=== PATIENT | female | born 1980 | race Caucasian/White ===

== ENCOUNTER 2016-07-27 16:03 | Emergency (ER) | payer OTHER ==
--- NOTE | 2016-07-27 18:10 | ED CLINICAL REPORT ---
Clinical Report - Physicians/Mid Levels [facility] [address] [place] [address] 07/27/2016 16:05 Patient: DWAYNE BELL Time Seen: 17:10; initial patient contact. Arrived- By private vehicle. Historian- patient. HISTORY OF PRESENT ILLNESS Chief Complaint: VAGINAL PAIN and DISCHARGE and DYSURIA. This started 5 days; pt is on flagyl for BV, diagnosed at walk in, is a diabetic and has not been checking her sugars. she states she only eats when she can and only has bread available to her currently. and still present and worsening. The symptoms are described as severe. The patient has had severe vaginal pain, a vaginal discharge and vaginal itching. She has had pain with urination. Sexually active- (2 weeks ago). Similar symptoms previously: None. Recent medical care: The patient was seen recently at another facility in a clinic. REVIEW OF SYSTEMS No nausea. All systems otherwise negative, except as recorded above. PAST HISTORY See nurses notes. Problems: Depression. Acute Pain. Tendonitis. Neuropathy. Muscle Spasm. Skin Rash. Cellulitis. Hypertension. LNMP - Last Normal Menstrual Period. Diabetes Mellitus. Medications: Naproxen Oral (Tablet 500 mg), 2x a day. PROzac Oral (Capsule 40 mg), daily. MetFORMIN HCl Oral (Tablet 500 mg) 1 tablet, 2x a day. Imitrex Oral (Tablet 25 mg), as needed. Gabapentin Oral (Tablet 800 mg) 1 tablet, 3x a day. Allergies: Contrast Media Ready-Box. Pork-derived Products. SOCIAL HISTORY No alcohol use or drug use. FAMILY HISTORY Negative. ADDITIONAL NOTES The nursing notes have been reviewed with agreement regarding the chief complaint, HPI, ROS, PMH and patient medications and allergies. PHYSICAL EXAM Vital Signs: 07/27/2016 16:55 BP: 133/90. HR: 104. RR: 22. O2 saturation: 100%. Temp: 98.0 F. Have been reviewed. Appearance: Alert. Oriented X3. No acute distress. CVS: Heart sounds normal. Respiratory: No respiratory distress. Breath sounds normal. Abdomen: Soft and nontender. Bowel sounds normal. No organomegaly. No mass. : Right labia minora : severe erythema and moderate tenderness and swelling. Perineum: mild erythema and tenderness. Left labia minora : moderate erythema, tenderness and swelling. External inspection normal. Thick, curd-like and white vaginal discharge present (moderately severe labial swelling and redness consistent with severe candidal infection). LABS, X-RAYS, AND EKG Laboratory Tests: UA-Culture if indicated: (JANAK: 07/27/2016 16:49) ( MsgRcvd 07/27/2016 17:20) Final results Test Result Flag Units (Reference) URINE COLOR YELLOW URINE APPEARANCE SL CLOUDY URINE GLUCOSE 3+ (NEGATIVE) URINE BILIRUBIN NEGATIVE (NEGATIVE) URINE KETONE 1+ (NEGATIVE) URINE SPECIFIC GRAVITY 1.015 (1.010-1.030) URINE PH 6.0 (5.0-8.0) URINE PROTEIN NEGATIVE (NEGATIVE) URINE UROBILINOGEN 0.2 EU/dL (0.2-1.0) URINE NITRITE NEGATIVE (NEGATIVE) URINE BLOOD TRACE-INTACT (NEGATIVE) URINE LEUK ESTERASE NEGATIVE (NEGATIVE) URINE RBC 1-3 rbc/hpf (0-1) URINE WBC 3-5 wbc/hpf (0-1) URINE EPITHELIAL CELLS 3-5 EPI/hpf (0-5) URINE BACTERIA MODERATE (2+ TO 3+) (NONE SEEN) URINE COMMENT CULTURE INDICATED MUCUS 2+URINE CULTURES ARE SET-UP BASED ON THE FOLLOWING CRITERIA:POSITIVE NITRITEPOSITIVE LEUKOCYTE ESTERASEGREATER THAN 10 WHITE BLOOD CELLSMODERATE (2+) OR GREATER BACTERIA . PROGRESS AND PROCEDURES Course of Care: Patient is stable. CLINICAL IMPRESSION Chronic severe nata vulvovaginitis Acute urinary tract infection with cystitis. Type 2 diabetes with hyperglycemia. No coma. INSTRUCTIONS Rest. Drink plenty of fluids. Avoid alcohol. Avoid lactose-containing (such as milk, cheese and ice cream) foods. Other diet: low carb dieting is recommended to help control your blood sugar until you see your doctor. No sexual contact. (see your doctor this week, start monitoring your blood glucose, and eat very low carb until you can get in with your doctor.). Warnings: Further evaluation is necessary. It is very important to follow up with a physician. GENERAL WARNINGS: Return or contact your physician immediately if your condition worsens or changes unexpectedly, if not improving as expected, or if other problems arise. Your Current Medications: CONTINUE TAKING THE FOLLOWING MEDICATIONS: Gabapentin Oral : Tablet 800 mg, 1 tablet 3x a day. Imitrex Oral : Tablet 25 mg, prn. MetFORMIN HCl Oral : Tablet 500 mg, 1 tablet 2x a day. Naproxen Oral : Tablet 500 mg, 2x a day. PROzac Oral : Capsule 40 mg, daily. Prescription Medications: Cipro 500 mg: take 1 tab orally every 12 hours for 3 days. No refills. Substitution is permissible. Oxycodone/APAP 5 mg/325 mg: take 1 tablet orally every 6 hours as needed for pain. Dispense twelve (12). No refill. Diflucan 150 mg tablets. No refill. (take 1 tab every 3 days for 21 days or 7 doses. disp#7) OTC Medications: Gyne-Lotrimin 2% Vaginal Cream (available over the counter): insert 1 applicatorful into the vagina every 12 hours for 7 days. One refill. Substitution is permissible. Understanding of the discharge instructions verbalized by patient and parent. (Electronically signed by Josselin Herrera PA-C 07/28/2016 0:17)
--- NOTE | 2016-07-27 18:10 | ED ORDER SUMMARY ---
..... Patient: DWAYNE BELL OrderSheet [facility] VisitID: [id number] [address] [place] [address] 35y, F Registration Date/Time: 07/27/2016 ORDER SHEET Weight: 68.0 kg (stated) Allergies: Contrast Media Ready-Box, Pork-derived Products GENERAL ORDERS: UA-Culture if indicated Urgent (16:48 07/27/2016 Fermin VALE) (17:02 Delma R.N.) MEDICATION ORDERS: Oxycodone-APAP PO 5/325 mg (HIGH ALERT MEDICATION, NOW) (18:05 07/27/2016 Fermin VALE) (18:09 Delma R.N.) IV FLUIDS: ORDER SHEET NOTES: [Electronically signed by Josselin Herrera PA-C (00:17 07/28/2016)] [Electronically signed by Richard Steele R.N. (13:15 07/28/2016)] [Electronically locked/signed by Richard Steele R.N. (13:15 07/28/2016)]
--- NOTE | 2016-07-27 18:10 | ED NURSING NOTES ---
Clinical Report - Nurses [facility] [address] [place] [address] 07/27/2016 16:05 Patient: DWAYNE BELL TRIAGE Triage time 16:48. Acuity: LEVEL 3. Chief Complaint: PELVIC PAIN and VAGINAL DISCHARGE and PAINFUL URINATION. Alert. SEPSIS SCREEN: Sepsis Screen. Infection suspected/documented. Temperature not greater than 38.3 degrees C (101 degrees F). --17:01 Richard Steele R.N. 16:55 07/27/16. BP: 133/90. HR: 104. RR: 22. O2 saturation: 100%. Temp: 98.0 F. Pain level now 10/10. --17:01 Richard Steele R.N. Weight: 68 kg stated. Height/Length: 62 inches Per Patient. BMI: 27.4. --16:56 Richard Steele R.N. Medications Gabapentin Oral (Tablet 800 mg) 1 tablet, 3x a day. --16:58 Richard Steele R.N. Imitrex Oral (Tablet 25 mg), as needed. --16:58 Richard Steele R.N. MetFORMIN HCl Oral (Tablet 500 mg) 1 tablet, 2x a day. --16:58 Richard Steele R.N. PROzac Oral (Capsule 40 mg), daily. --16:58 Richard Steele R.N. Naproxen Oral (Tablet 500 mg), 2x a day. --16:58 Richard Steele R.N. Allergies Contrast Media Ready-Box. --16:59 Richard Steele R.N. Pork-derived Products. --16:59 Richard Steele R.N. Medication/allergy information source: the patient. --17:01 Richard Steele R.N. History ( dx with bacterial vaginitis at [facility] 3 days ago, placed on antibx. Returned to [facility] today for continued sx. States pain is 10/10, sx have been present x 1 week. Tearful in triage. States she is on an antibx that starts with an "m"). Onset. (1 weeks ago). 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 PAST MEDICAL HX: Last normal menstrual period was 3 weeks ago. Denies current . SOCIAL HX: Never smoker. No alcohol use or drug use. ABUSE ASSESSMENT: Abuse assessment: The patient was asked "Do you feel safe in your home?". No report of abuse. FALL RISK ASSESSMENT: Fall risk assessment completed. No fall risk identified. NUTRITIONAL RISK ASSESSMENT: The nutritional risk assessment revealed no deficiencies. FUNCTIONAL ASSESSMENT: Functional assessment: no impairments noted. LEARNING NEEDS ASSESSMENT: The learning needs assessment revealed no barriers. SKIN INTEGRITY ASSESSMENT: Skin integrity risk assessment completed. No skin integrity risk identified. --17:01 Richard Steele R.N. PROBLEMS: Depression. Acute Pain. Tendonitis. Neuropathy. Muscle Spasm. Skin Rash. Cellulitis. Hypertension. Diabetes Mellitus. --17:00 Richard Steele R.N. ADDITIONAL SURGERIES: Appendectomy. Left wrist. Thumb. --17:00 Richard Steele R.N. Interventions ID band on patient. To waiting room. --17:01 Richard Steele R.N. PHYSICAL ASSESSMENT To room via wheelchair. GENERAL / NEURO / PSYCH: Alert. Oriented X 4. Appears anxious. RESPIRATORY: Respirations not labored. CVS: Capillary refill less than 2 seconds. GI / : Abdomen soft and nontender. SKIN: Skin is warm and dry. --17:01 Richard Steele R.N. NURSING PROGRESS NOTES The plan of care for this patient has been created. Call light placed in reach. Patient placed in chair. --17:01 Richard Steele R.N. 17:02 07/27/16. Patient ID band checked for patient name and birthdate: patient confirmed. Instructions provided to collect clean catch urine and patient verbalized understanding. Clean catch urine collected with return of yellow-colored urine, sediment noted; odor is foul-smelling; sample sent to lab for urinalysis and culture. Specimen labeled in the presence of the patient. --17:02 Richard Steele R.N. ( inquired as to patient's recent blood sugars. Pt states she doesn't check her sugars because it hurts her fingers to do so. CBG 287). --17:46 Richard Steele R.N. 18:09 07/27/2016 Oxycodone-APAP (Oxycodone-Acetaminophen) PO 5/325 mg Tablets 1 tab given. Allergies verified, confirmed 5 rights and sedative warning given to the patient. --18:09 Richard Steele R.N. DISPOSITION / DISCHARGE 18:17 07/27/16. Departure time: 1814. Condition at departure: improved and stable. Reviewed medication(s) side effects, precautions, dosing and course information. Prescription(s) given to the patient. Patient verbalized understanding. Written instructions provided in [place]. The patient was discharged by the physician medical office assistant instructor. She was discharged home and accompanied by parent. She left the Emergency Department ambulatory and via private vehicle. Parent driving. --18:17 Richard Steele R.N. Locked/Released at 07/28/2016 13:15 by Richard Steele R.N.
--- NOTE | 2016-07-27 18:10 | ED NURSING NOTES ---
Clinical Report - Nurses [facility] [address] [place] [address] 07/27/2016 16:05 Patient: DWAYNE BELL TRIAGE Triage time 16:48. Acuity: LEVEL 3. Chief Complaint: PELVIC PAIN and VAGINAL DISCHARGE and PAINFUL URINATION. Alert. SEPSIS SCREEN: Sepsis Screen. Infection suspected/documented. Temperature not greater than 38.3 degrees C (101 degrees F). --17:01 Richard Steele R.N. 16:55 07/27/16. BP: 133/90. HR: 104. RR: 22. O2 saturation: 100%. Temp: 98.0 F. Pain level now 10/10. --17:01 Richard Steele R.N. Weight: 68 kg stated. Height/Length: 62 inches Per Patient. BMI: 27.4. --16:56 Richard Steele R.N. Medications Gabapentin Oral (Tablet 800 mg) 1 tablet, 3x a day. --16:58 Richard Steele R.N. Imitrex Oral (Tablet 25 mg), as needed. --16:58 Richard Steele R.N. MetFORMIN HCl Oral (Tablet 500 mg) 1 tablet, 2x a day. --16:58 Richard Steele R.N. PROzac Oral (Capsule 40 mg), daily. --16:58 Richard Steele R.N. Naproxen Oral (Tablet 500 mg), 2x a day. --16:58 Richard Steele R.N. Allergies Contrast Media Ready-Box. --16:59 Richard Steele R.N. Pork-derived Products. --16:59 Richard Steele R.N. Medication/allergy information source: the patient. --17:01 Richard Steele R.N. History ( dx with bacterial vaginitis at [facility] 3 days ago, placed on antibx. Returned to [facility] today for continued sx. States pain is 10/10, sx have been present x 1 week. Tearful in triage. States she is on an antibx that starts with an "m"). Onset. (1 weeks ago). 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 PAST MEDICAL HX: Last normal menstrual period was 3 weeks ago. Denies current . SOCIAL HX: Never smoker. No alcohol use or drug use. ABUSE ASSESSMENT: Abuse assessment: The patient was asked "Do you feel safe in your home?". No report of abuse. FALL RISK ASSESSMENT: Fall risk assessment completed. No fall risk identified. NUTRITIONAL RISK ASSESSMENT: The nutritional risk assessment revealed no deficiencies. FUNCTIONAL ASSESSMENT: Functional assessment: no impairments noted. LEARNING NEEDS ASSESSMENT: The learning needs assessment revealed no barriers. SKIN INTEGRITY ASSESSMENT: Skin integrity risk assessment completed. No skin integrity risk identified. --17:01 Richard Steele R.N. PROBLEMS: Depression. Acute Pain. Tendonitis. Neuropathy. Muscle Spasm. Skin Rash. Cellulitis. Hypertension. Diabetes Mellitus. --17:00 Richard Steele R.N. ADDITIONAL SURGERIES: Appendectomy. Left wrist. Thumb. --17:00 Richard Steele R.N. Interventions ID band on patient. To waiting room. --17:01 Richard Steele R.N. PHYSICAL ASSESSMENT To room via wheelchair. GENERAL / NEURO / PSYCH: Alert. Oriented X 4. Appears anxious. RESPIRATORY: Respirations not labored. CVS: Capillary refill less than 2 seconds. GI / : Abdomen soft and nontender. SKIN: Skin is warm and dry. --17:01 Richard Steele R.N. NURSING PROGRESS NOTES The plan of care for this patient has been created. Call light placed in reach. Patient placed in chair. --17:01 Richard Steele R.N. 17:02 07/27/16. Patient ID band checked for patient name and birthdate: patient confirmed. Instructions provided to collect clean catch urine and patient verbalized understanding. Clean catch urine collected with return of yellow-colored urine, sediment noted; odor is foul-smelling; sample sent to lab for urinalysis and culture. Specimen labeled in the presence of the patient. --17:02 Richard Steele R.N. ( inquired as to patient's recent blood sugars. Pt states she doesn't check her sugars because it hurts her fingers to do so. CBG 287). --17:46 Richard Steele R.N. 18:09 07/27/2016 Oxycodone-APAP (Oxycodone-Acetaminophen) PO 5/325 mg Tablets 1 tab given. Allergies verified, confirmed 5 rights and sedative warning given to the patient. --18:09 Richard Steele R.N. DISPOSITION / DISCHARGE 18:17 07/27/16. Departure time: 1814. Condition at departure: improved and stable. Reviewed medication(s) side effects, precautions, dosing and course information. Prescription(s) given to the patient. Patient verbalized understanding. Written instructions provided in [place]. The patient was discharged by the physician data analysis assistant. She was discharged home and accompanied by parent. She left the Emergency Department ambulatory and via private vehicle. Parent driving. --18:17 Richard Steele R.N. Locked/Released at 07/28/2016 13:15 by Richard Steele R.N.
--- NOTE | 2016-07-27 18:10 | ED ORDER SUMMARY ---
..... Patient: DWAYNE BELL OrderSheet [facility] VisitID: [id number] [address] [place] [address] 35y, F Registration Date/Time: 07/27/2016 ORDER SHEET Weight: 68.0 kg (stated) Allergies: Contrast Media Ready-Box, Pork-derived Products GENERAL ORDERS: UA-Culture if indicated Urgent (16:48 07/27/2016 Fermin VALE) (17:02 Delma R.N.) MEDICATION ORDERS: Oxycodone-APAP PO 5/325 mg (HIGH ALERT MEDICATION, NOW) (18:05 07/27/2016 Fermin VALE) (18:09 Delma R.N.) IV FLUIDS: ORDER SHEET NOTES: [Electronically signed by Josselin Herrera PA-C (00:17 07/28/2016)] [Electronically signed by Richard Steele R.N. (13:15 07/28/2016)] [Electronically locked/signed by Richard Steele R.N. (13:15 07/28/2016)]
--- NOTE | 2016-07-28 13:16 | ED MED RECONCILIATION SUMMARY ---
Patient: DWAYNE BELL Medication Reconciliation Report [facility] VisitID: [id number] [place] [address] 35y, F Registration Date/Time: 07/27/2016 Weight: 68.0 kg Height/Length: 62 in. BMI: 27.4 ALLERGIES: Contrast Media Ready-Box, Pork-derived Products The patient's Home Medications are listed below: CONTINUE TAKING THE FOLLOWING MEDICATIONS: Gabapentin Oral (800 mg) 1 tablet, 3x a day Imitrex Oral (25 mg) MetFORMIN HCl Oral (500 mg) 1 tablet, 2x a day Naproxen Oral (500 mg), 2x a day PROzac Oral (40 mg), daily The source(s) of the original Home Medication information: patient The following Medications were given to the patient in the Emergency Department: Oxycodone-APAP [PO] PO 1 tab, administered: 07/27/2016 6:09:00 PM The following Medications were prescribed to the patient: Cipro 500 mg: take 1 tab orally every 12 hours for 3 days. No refills. Substitution is permissible. -- Josselin Herrera PA-C Oxycodone/APAP 5 mg/325 mg: take 1 tablet orally every 6 hours as needed for pain. Dispense twelve (12). No refill. -- Josselin Herrera PA-C Diflucan 150 mg tablets. No refill.(take 1 tab every 3 days for 21 days or 7 doses. disp#7) -- Josselin Herrera PA-C Gyne-Lotrimin 2% Vaginal Cream (available over the counter): insert 1 applicatorful into the vagina every 12 hours for 7 days. One refill. Substitution is permissible. -- Josselin Herrera PA-C
--- NOTE | 2016-07-28 13:16 | ED MAR SUMMARY ---
..... Medication Administration Record [facility] [address] [place] [address] Patient: DWAYNE BELL Visit ID: [id number] 35y, F Weight: 68.0 kg Height/Length: 62 in BMI: 27.4 ALLERGIES: Pork-derived Products, Contrast Media Ready-Box Given 18:09 07/27/2016 Richard Steele RSaskia Medication Administered: OXYCODONE-APAP [PO] (OXYCODONE-ACETAMINOPHEN), Dose: 1 tab 5/325 mg Tablets PO. Medication Ordered: Oxycodone-APAP PO 5/325 mg (HIGH ALERT MEDICATION, NOW).
--- NOTE | 2016-07-28 13:16 | ED MAR SUMMARY ---
..... Medication Administration Record [facility] [address] [place] [address] Patient: DWAYNE BELL Visit ID: [id number] 35y, F Weight: 68.0 kg Height/Length: 62 in BMI: 27.4 ALLERGIES: Pork-derived Products, Contrast Media Ready-Box Given 18:09 07/27/2016 Richard Steele RSaskia Medication Administered: OXYCODONE-APAP [PO] (OXYCODONE-ACETAMINOPHEN), Dose: 1 tab 5/325 mg Tablets PO. Medication Ordered: Oxycodone-APAP PO 5/325 mg (HIGH ALERT MEDICATION, NOW).
--- NOTE | 2016-07-28 13:16 | ED DISCHARGE INSTRUCTIONS ---
Patient: DWAYNE BELL General Instructions [facility] VisitID: [id number] [address] [place] [address] 35y, F Registration Date/Time: 07/27/2016 Chronic severe nata vulvovaginitis Acute urinary tract infection with cystitis. Type 2 diabetes with hyperglycemia. No coma. INSTRUCTIONS Rest. Drink plenty of fluids. Avoid alcohol. Avoid lactose-containing (such as milk, cheese and ice cream) foods. Other diet: low carb dieting is recommended to help control your blood sugar until you see your doctor. No sexual contact. (see your doctor this week, start monitoring your blood glucose, and eat very low carb until you can get in with your doctor.). Warnings: Further evaluation is necessary. It is very important to follow up with a physician. GENERAL WARNINGS: Return or contact your physician immediately if your condition worsens or changes unexpectedly, if not improving as expected, or if other problems arise. Your Current Medications: CONTINUE TAKING THE FOLLOWING MEDICATIONS: Gabapentin Oral : Tablet 800 mg, 1 tablet 3x a day. Imitrex Oral : Tablet 25 mg, prn. MetFORMIN HCl Oral : Tablet 500 mg, 1 tablet 2x a day. Naproxen Oral : Tablet 500 mg, 2x a day. PROzac Oral : Capsule 40 mg, daily. Prescription Medications: Cipro 500 mg: take 1 tab orally every 12 hours for 3 days. No refills. Substitution is permissible. Oxycodone/APAP 5 mg/325 mg: take 1 tablet orally every 6 hours as needed for pain. Dispense twelve (12). No refill. Diflucan 150 mg tablets. No refill. (take 1 tab every 3 days for 21 days or 7 doses. disp#7) OTC Medications: Gyne-Lotrimin 2% Vaginal Cream (available over the counter): insert 1 applicatorful into the vagina every 12 hours for 7 days. One refill. Substitution is permissible. Understanding of the discharge instructions verbalized by patient and parent. ADDITIONAL INFORMATION Bacterial Vaginosis You have a bacterial infection of the vagina called bacterial vaginosis (BV). It may also be called gardnerella or non-specific vaginitis. BV occurs when the "bad" bacteria outnumber the "good" bacteria that are normally present in the vagina. Symptoms include foul-smelling vaginal discharge (most noticeable after vaginal intercourse). There may also be burning with urination. The burning is caused as the urine passes over the inflamed outer vaginal area. The cause of bacterial vaginosis is not certain. However, your risk is higher if you recently began a new sexual relationship, or have had many sex partners in the past. Your risk is also higher if you douche often. While bacterial vaginosis most often occurs only in sexually active women, this is not a true sexually transmitted disease. You did not get this from your partner. You cannot give it to your partner. The infection may be related to temporary changes in the pH of vaginal fluids after being exposed to semen. Home Care: Keep the genital area clean and free of discharge. Do this by wearing an absorbent sanitary pad and changing it often. Shower daily. When you shower, clean the outer vaginal area with plain soap and water. Do not douche during treatment unless advised to do so by your doctor. Routine douching after treatment is no longer recommended to clean the vagina. It raises your risk of vaginal infection and pelvic inflammatory disease. Avoid having sex until you have finished all antibiotic medicine and all symptoms have gone away. Wear cotton underwear or cotton-lined panty hose. Dont wear pants that are too tight. Limiting the number of sex partners you have lowers your risk of this and other vaginal infections, STDs, and HIV. Take all medicine as directed until it is gone, even if you are feeling better. If you dont do this, symptoms might return. Follow Up with your doctor if symptoms dont go away after the medicine is finished. Get Prompt Medical Attention if any of the following occur: Fever of 100.4F (38C) or higher, or as directed by your healthcare provider Lower abdominal pain Rash or joint pain Painful sores around the outer vaginal area or on your partners penis Ntaa Vaginal Infection Nata is an overgrowth of the yeast germs that are normally present in the vagina. The symptoms are itching and redness of the outer vaginal area and whitish discharge. You may also have a burning sensation when you pass urine. This is due to the urine contacting the inflamed outer vaginal tissues. This infection occurs when there is an imbalance in the natural fluids of the vagina. It may occur during , or when taking control pills or antibiotics. Other risk factors include diabetes, wearing tight underwear and douching too often. Home Care: Keep the genital area clean and free of discharge by wearing an absorbent sanitary pad. Change the pad often. Shower daily, cleaning the outer vaginal area with plain soap and water. Do not douche during treatment unless advised to do so by your doctor. Routine douching after treatment is no longer recommended to clean the vagina. It raises your risk of vaginal infection and pelvic inflammatory disease. Dont have sex until you have finished the medicine and all of your symptoms have gone away. Wear cotton underwear or cotton-lined panty hose. Dont wear pants that are too tight. Take all medicine as directed until it is gone. If you dont do this, symptoms might come back. Follow Up: Return to this facility or see your doctor if ALL symptoms have not cleared after treatment is complete. Get Prompt Medical Attention if any of the following occur: Fever of 100.4F (38C) or higher, or as directed by your healthcare provider Lower abdominal pain Rash or joint pain Painful sores around the outer vaginal area or on your partners penis Diabetes with High Blood Sugar You have been treated for high blood sugar (hyperglycemia). This may be becauseof an infection or other illness;eating too many sweets or starches ; not taking enough insulin. Home care High blood sugar may cause symptoms that you can learn to recognize, such as these: If you feel like your blood sugar may be too high, measure it using a blood or urine test. If it is above your usual range, use the "sliding scale"rRegular insulin dose your doctor gave you to correct this. If no "sliding scale" orders were given, contact your doctor for further advice. If your blood sugar is over 300, and you can't reach your doctor, go to the hospital emergency room. Monitor and write down your blood sugars - and insulin dose, if you take insulin - atleast twice a day. Do this before breakfast and before dinner. Do this for the next 3 to 5 days. Follow-up care Follow up with your health care provderduring the next week to review your blood sugar records. You will find out if you need to adjust your dose of insulin or other medicine for blood sugar. When to seek medical care Get prompt medical attention if either of these occur: High blood sugar.Symptoms are frequent urination, feeling dizzy, thirst, headache, nausea or vomiting, abdominal pain, and drowsiness or loss of consciousness. Low blood sugar. Symptoms are fatigue, headache, shakes, excess sweating, hunger, anxiety, reduced vision, drowsiness, weakness, confusion or loss of consciousness, and seizure. Fluconazole Oral tablet What is this medicine? FLUCONAZOLE (floo SONAM na zole) is an antifungal medicine. It is used to treat certain kinds of fungal or yeast infections. How should I use this medicine? Take this medicine by mouth. Follow the directions on the prescription label. Do not take your medicine more often than directed. Talk to your health science specialist regarding the use of this medicine in children. Special care may be needed. This medicine has been used in children as young as 6 months of age. What side effects may I notice from receiving this medicine? Side effects that you should report to your doctor or health child care associate as soon as possible: allergic reactions like skin rash or itching, hives, swelling of the lips, mouth, tongue, or throat dark urine feeling dizzy or faint irregular heartbeat or chest pain redness, blistering, peeling or loosening of the skin, including inside the mouth trouble breathing unusual bruising or bleeding vomiting yellowing of the eyes or skin Side effects that usually do not require medical attention (report to your doctor or health child care associate if they continue or are bothersome): changes in how food tastes diarrhea headache stomach upset or nausea What may interact with this medicine? Do not take this medicine with any of the following medications: cisapride pimozide red yeast rice This medicine may also interact with the following medications: control pills cyclosporine diuretics like hydrochlorothiazide medicines for diabetes that are taken by mouth medicines for high cholesterol like atorvastatin, lovastatin or simvastatin phenytoin ramelteon rifabutin rifampin some medicines for anxiety or sleep tacrolimus terfenadine theophylline tofacitinib warfarin What if I miss a dose? If you miss a dose, take it as soon as you can. If it is almost time for your next dose, take only that dose. Do not take double or extra doses. Where should I keep my medicine? Keep out of the reach of children. Store at room temperature below 30 degrees C (86 degrees F). Throw away any medicine after the expiration date. What should I tell my health care provider before I take this medicine? They need to know if you have any of these conditions: electrolyte abnormalities history of irregular heart beat kidney disease an unusual or allergic reaction to fluconazole, other azole antifungals, medicines, foods, dyes, or preservatives or trying to get breast-feeding What should I watch for while using this medicine? Visit your doctor or health child care associate for regular checkups. If you are taking this medicine for a long time you may need blood work. Tell your doctor if your symptoms do not improve. Some fungal infections need many weeks or months of treatment to cure. Alcohol can increase possible damage to your liver. Avoid alcoholic drinks. If you have a vaginal infection, do not have sex until you have finished your treatment. You can wear a sanitary napkin. Do not use tampons. Wear freshly washed cotton, not synthetic, panties. You have been given the following additional information: Vaginitis, Bacterial Vaginitis, Nata Diabetic Hyperglycemia Fluconazole Oral tablet Rest. (Electronically signed by Josselin Herrera PA-C 07/28/2016 0:17)
--- NOTE | 2016-07-28 13:16 | ED MED RECONCILIATION SUMMARY ---
Patient: DWAYNE BELL Medication Reconciliation Report [facility] VisitID: [id number] [place] [address] 35y, F Registration Date/Time: 07/27/2016 Weight: 68.0 kg Height/Length: 62 in. BMI: 27.4 ALLERGIES: [employer], Pork-derived Products The patient's Home Medications are listed below: CONTINUE TAKING THE FOLLOWING MEDICATIONS: Gabapentin Oral (800 mg) 1 tablet, 3x a day Imitrex Oral (25 mg) MetFORMIN HCl Oral (500 mg) 1 tablet, 2x a day Naproxen Oral (500 mg), 2x a day PROzac Oral (40 mg), daily The source(s) of the original Home Medication information: patient The following Medications were given to the patient in the Emergency Department: Oxycodone-APAP [PO] PO 1 tab, administered: 07/27/2016 6:09:00 PM The following Medications were prescribed to the patient: Cipro 500 mg: take 1 tab orally every 12 hours for 3 days. No refills. Substitution is permissible. -- Josselin Herrera PA-C Oxycodone/APAP 5 mg/325 mg: take 1 tablet orally every 6 hours as needed for pain. Dispense twelve (12). No refill. -- Josselin Herrera PA-C Diflucan 150 mg tablets. No refill.(take 1 tab every 3 days for 21 days or 7 doses. disp#7) -- Josselin Herrera PA-C Gyne-Lotrimin 2% Vaginal Cream (available over the counter): insert 1 applicatorful into the vagina every 12 hours for 7 days. One refill. Substitution is permissible. -- Josselin Herrera PA-C
== END 2016-07-27 18:15 | disposition home or self-care (01) ==
LOC: ED SRH 16:03
DX: N30.00 Acute cystitis without hematuria (principal); B37.3 Candidiasis of vulva and vagina; E11.65 Type 2 diabetes mellitus with hyperglycemia; I10 Essential (primary) hypertension; Z79.899 Other long term (current) drug therapy; Z91.018 Allergy to other foods; Z91.041 Radiographic dye allergy status; Z79.84 Long term (current) use of oral hypoglycemic drugs
CPT/HCPCS: 90004; 90469